=== PATIENT | female | born 1970 | race Caucasian/White ===

== ENCOUNTER → 2019-03-12 | Outpatient (CLI) | payer OTHER ==
[2019-03-12 13:51] LABS: HCT 43.1 % (34.0-46.0); HGB 14.1 gm/dL (11.4-16.0); MCH 31.6 pg (25.0-35.0); MCHC 32.7 g/dL (31.0-37.0); MCV 96.6 fL (80.0-100.0); Mean Platelet Volume 6.7; Platelet Count 308 k/uL (150-450); RBC 4.47 m/uL (3.80-5.40); RDW 12.1 % (11.5-15.5); WBC 8.6 k/uL (3.8-10.6)
--- NOTE | 2019-03-12 13:54 | XR ---
EXAMINATION TYPE: XR chest 2V DATE OF EXAM: 03/12/2019 COMPARISON: NONE HISTORY: Chest pain TECHNIQUE: Frontal and lateral views of the chest are obtained. FINDINGS: There is no focal air space opacity, pleural effusion, or pneumothorax seen. Pulmonary hyp erinflation is seen indicative of underlying COPD with prominence of the main pulmonary arteries. The cardiac silhouette size is within normal limits. The osseous structures are intact. Mild multileve l degenerative change of the spine. IMPRESSION: No acute cardiopulmonary process. COPD with findings suggesting pulmonary arterial hyper tension.
[2019-03-12 14:19] LABS: ALT 18 U/L (4-34); AST 30 U/L (14-36); African American GFR (CKD) >90 (>60 ml/min/1.73 sqM); Albumin 4.7 g/dL (3.5-5.0); Alkaline Phosphatase 77 U/L (38-126); Anion Gap 11 mmol/L; Blood Urea Nitrogen 21 mg/dL (7-17); Carbon Dioxide 26 mmol/L (22-30); Chloride 103 mmol/L (98-107); Creatine Kinase 129 U/L (30-135); Glucose 96 mg/dL (74-99); LDH 597 U/L (313-618); Non-African American GFR(CKD) >90 (>60 ml/min/1.73 sqM); Potassium 5.3 mmol/L (3.5-5.1); Sodium 140 mmol/L (137-145); Total Bilirubin 0.4 mg/dL (0.2-1.3); Total Protein 7.5 g/dL (6.3-8.2)
[2019-03-12 14:35] LABS: T4, Free (Free Thyroxine) 0.84 ng/dL (0.78-2.19)
[2019-03-12 20:33] LABS: Folate, Serum >24.0 ng/mL
[2019-03-12 23:37] LABS: Hemoglobin A1C 5.4 % (4.0-6.0)
== END | disposition home or self-care (01) ==
LOC: RADXRWHC 12:55
PROVIDERS: ATTEND Family Medicine
DX: J44.9 Chronic obstructive pulmonary disease, unspecified (principal); G47.62 Sleep related leg cramps; R07.9 Chest pain, unspecified; R00.2 Palpitations; R06.02 Shortness of breath; R53.83 Other fatigue; R42 Dizziness and giddiness
CPT/HCPCS: 71046; 80053; 82306; 82550; 82607; 82746; 83036; 83615; 83735; 84439; 84443; 84484; 85027; 85379

== ENCOUNTER → 2019-03-16 | Outpatient (CLI) | payer OTHER | LOC: RADECHMAIN 12:32 | PROVIDERS: ATTEND Family Medicine | DX: R00.2 Palpitations (principal) | CPT/HCPCS: 93225; 93226 ==

== ENCOUNTER → 2019-08-08 | Outpatient (CLI) | payer OTHER ==
--- NOTE | 2019-08-08 10:40 | ECHOF ---
Referral Reason:R01.1 Cardiac murmur, unspecified MEASUREMENTS -------- HEIGHT: 167.6 cm WEIGHT: 66.7 kg BP: 113/72 RVIDd: 2.7 cm (< 3.3) IVSd: 1.0 cm (0.6 - 1.1) LVIDd: 4.1 cm (3.9 - 5.3) LVPWd: 0.8 cm (0.6 - 1.1) IVSs: 1.4 cm LVIDs: 2.9 cm LVPWs: 1.3 cm LA Diam: 3.2 cm (2.7 - 3.8) LAESV Index (A-L): 21.53 ml/m Ao Diam: 2.3 cm (2.0 - 3.7) AV Cusp: 1.8 cm (1.5 - 2.6) MV EXCURSION: 18.894 mm (> 18.000) MV EF SLOPE: 67 mm/s (70 - 150) EPSS: 0.5 cm MV E Nabeel: 0.93 m/s MV DecT: 305 ms MV A Nabeel: 0.78 m/s MV E/A Ratio: 1.19 AV maxP.95 mmHg AV meanP.90 mmHg RAP: 5.00 mmHg RVSP: 28.77 mmHg FINDINGS -------- Sinus rhythm. This was a technically adequate study. The left ventricular size is normal. Left ventricular wall thickness is normal. Overall left vent ricular systolic function is normal with, an EF between 60 - 65 %. The right ventricle is normal in size. Normal LA size by volume 22+/-6 ml/m2. The right atrium is normal in size. Interatrial and interventricular septum intact. The aortic valve is bicuspid. There is mild aortic valve sclerosis. Mild to moderate aortic steno sis with peak/mean pressure gradient of 36.95mmHg / 21.90mmHg , the aortic valve area by continuity e quation is 1.4cm. Peak/mean gradient across the Aortic Valve is 36.95mmHg / 21.90mmHg. Possible Bi cuspid valve, Somewhat off axis views, Valve opens very well, , leaflets are calcified The mitral valve leaflets are mildly thickened. There is trace mitral regurgitation. Mild tricuspid regurgitation present. Right ventricular systolic pressure is normal at < 35 mmHg. Trace/mild (physiologic) pulmonic regurgitation. The aortic root size is normal. Normal inferior vena cava with normal inspiratory collapse consistent with estimated right atrial pre ssure of 5 mmHg. There is no pericardial effusion. Off axis aortic valve views, calcified tips, possible Bicuspid CONCLUSIONS -------- 1. Sinus rhythm. 2. This was a technically adequate study. 3. The left ventricular size is normal. 4. Left ventricular wall thickness is normal. 5. Overall left ventricular systolic function is normal with, an EF between 60 - 65 %. 6. The right ventricle is normal in size. 7. Normal LA size by volume 22+/-6 ml/m2. 8. The right atrium is normal in size. 9. Interatrial and interventricular septum intact. 10. The aortic valve is bicuspid. 11. There is mild aortic valve sclerosis. 12. Mild to moderate aortic stenosis with peak/mean pressure gradient of 36.95mmHg / 21.90mmHg , the aortic valve area by continuity equation is 1.4cm. 13. Peak/mean gradient across the Aortic Valve is 36.95mmHg / 21.90mmHg. 14. The mitral valve leaflets are mildly thickened. 15. There is trace mitral regurgitation. 16. Mild tricuspid regurgitation present. 17. Right ventricular systolic pressure is normal at < 35 mmHg. 18. Trace/mild (physiologic) pulmonic regurgitation. 19. The aortic root size is normal. 20. Normal inferior vena cava with normal inspiratory collapse consistent with estimated right atrial pressure of 5 mmHg. 21. There is no pericardial effusion. CRUDE TESTER: Jennifer Larose RDCS
== END | disposition home or self-care (01) ==
LOC: RADECHMAIN 08:45
PROVIDERS: ATTEND Family Medicine
DX: Q23.1 Congenital insufficiency of aortic valve (principal); R01.1 Cardiac murmur, unspecified
CPT/HCPCS: 93306

== ENCOUNTER → 2020-11-05 | Outpatient (CLI) | payer OTHER ==
--- NOTE | 2020-11-05 10:18 | US ---
EXAMINATION TYPE: US abdomen complete DATE OF EXAM: 11/05/2020 COMPARISON: NONE CLINICAL HISTORY: R10.84 abdominal pain R94.8 abnormal pancreas func. Bowel irregularities, elevated liver enzymes EXAM MEASUREMENTS: Liver Length: 12.8 cm Gallbladder Wall: 0.2 cm CBD: 0.5 cm Spleen: 8.5 cm Right Kidney: 9.9 x 4.2 x 4.3 cm Left Kidney: 9.4 x 5.6 x 4.4 cm Pancreas: visualized portions wnl, limited by overlying midline bowel gas Liver: 1.0cm cyst left lobe, otherwise appears wnl Gallbladder: wnl Evidence for sonographic Ch's sign: no CBD: wnl Spleen: visualized portions wnl, limited by overlying bowel gas Right Kidney: wnl Left Kidney: visualized portions wnl, superior pole limited by overlying bowel gas Upper IVC: wnl Abd Aorta: wnl The liver is homogenous. The intrahepatic portion of the IVC and proximal abdominal aorta are within normal limits. There is no evidence of cholelithiasis. Common bile duct is unremarkable. The visu alized portions of the pancreas are homogenous. The spleen is unremarkable. Kidneys are symmetric a nd free of hydronephrosis. No renal lesions are seen. IMPRESSION: Simple hepatic cyst. Otherwise unremarkable study.
== END | disposition home or self-care (01) ==
LOC: RADUSWWP 09:36
PROVIDERS: ATTEND Family Medicine
DX: K76.89 Other specified diseases of liver (principal); R10.84 Generalized abdominal pain; R94.5 Abnormal results of liver function studies; R94.8 Abnormal results of function studies of other organs and systems
CPT/HCPCS: 76700

== ENCOUNTER 2021-01-28 15:47 | Emergency (ER) | payer OTHER ==
[2021-01-28] MEDS ORDERED: ONDANSETRON 4 MG/2 ML VIAL IVP STA (19:25)
[2021-01-28] MEDS ORDERED: SODIUM CHLORIDE 0.9% 1,000 ML IV STA (19:25)
[2021-01-28] MEDS ORDERED: DEXAMETHASONE SOD PHOSPHATE 10 MG/ML 1 ML VIAL IVP STA (19:25)
[2021-01-28] MEDS ORDERED: ACETAMINOPHEN TAB 325 MG TAB PO STA (19:25)
--- NOTE | 2021-01-28 20:10 | XR ---
EXAMINATION TYPE: XR chest 2V DATE OF EXAM: 01/28/2021 COMPARISON: 03/12/2019 HISTORY: Cough. TECHNIQUE: 2 views FINDINGS: There is a 5 cm patch of infiltrate in the posterior left lower lobe. This is adjacent to t he chest wall. Heart and mediastinum are normal. There are no hilar masses. There is no pleural effus ion. Bony thorax is intact. IMPRESSION: Left lower lobe pneumonia is new compared to old exam.
[2021-01-28] MEDS ORDERED: SODIUM CHLORIDE 0.9% 50 ML IVPB ONE (20:15)
[2021-01-28] MEDS ORDERED: BAMLANIVIMAB (EUA) 700 MG, ETESEVIMAB (EUA) 1,400 MG in SODIUM CHLORIDE 0.9% 50 ML IVPB ONE (20:15)
--- NOTE | 2021-01-28 20:35 | ED ---
URI HPI - General Chief Complaint: Upper Respiratory Infection Stated Complaint: Covid+ Time Seen by Provider: 01/28/21 19:00 Source: patient, RN notes reviewed Mode of arrival: ambulatory Limitations: no limitations - History of Present Illness Initial Comments: Patient is a 50-year-old female that presents to the emergency Department complaining of Covid symptoms for approximately a week she did test positive on Tuesday this week. Patient notes that she feels feverish. She was otherwise well-appearing. Patient was in moderate amounts of emotional distress stating that she just doesn't feel well. Patient denied any other issues or complaints. She denied chest pain shortness of breath headache vomiting diarrhea constipation fever fatigue chills. Patient does have a congenital heart disorder. - Related Data Previous Rx's Medication Instructions Recorded Azithromycin [Zithromax Z-pack (6 0 mg PO DIRECTED #6 tab 01/28/21 tabs)] Allergies Allergy/AdvReac Type Severity Reaction Status Date / Time No Known Allergies Allergy Verified 01/28/21 17:24 Review of Systems ROS Statement: Those systems with pertinent positive or pertinent negative responses have been documented in the HPI. ROS Other: All systems not noted in ROS Statement are negative. Past Medical History Additional Past Medical History / Comment(s): Heart murmur History of Any Multi-Drug Resistant Organisms: None Reported Past Surgical History: No Surgical Hx Reported Past Psychological History: No Psychological Hx Reported Smoking Status: Never smoker Past Alcohol Use History: Occasional Past Drug Use History: None Reported General Exam Limitations: no limitations General appearance: alert, in no apparent distress Head exam: Present: atraumatic, normocephalic, normal inspection Eye exam: Present: normal appearance, PERRL, EOMI. Absent: scleral icterus, conjunctival injection, periorbital swelling ENT exam: Present: normal exam, mucous membranes moist Neck exam: Present: normal inspection Respiratory exam: Present: normal lung sounds bilaterally. Absent: respiratory distress, wheezes, rales, rhonchi, stridor Cardiovascular Exam: Present: regular rate, normal rhythm, normal heart sounds. Absent: systolic murmur, diastolic murmur, rubs, gallop, clicks Extremities exam: Present: normal inspection, full ROM, normal capillary refill. Absent: tenderness, pedal edema, joint swelling, calf tenderness Neurological exam: Present: alert, oriented X3 Psychiatric exam: Present: normal affect, normal mood Skin exam: Present: warm, dry, intact, normal color. Absent: rash Course Vital Signs 01/28/21 17:21 Temperature 99.4 F Pulse Rate 96 Respiratory 20 Rate Blood Pressure 96/54 O2 Sat by Pulse 96 Oximetry Medical Decision Making - Medical Decision Making 50-year-old female Covid-positive. 650 mg of Tylenol, 10 mg of Decadron, 4 mg of Zofran, 1 L normal saline ordered. 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 Patient is agreeable with discharge home with conservative management after. Case discussed with Dr. Miguel, patient discharge home. - Radiology Data Radiology results: report reviewed, image reviewed Chest x-ray: Left lower lobe pneumonia is new compared to old exam. Disposition Clinical Impression: COVID Disposition: HOME SELF-CARE Condition: Stable Instructions (If sedation given, give patient instructions): Coronavirus Disease 2019 (COVID-19) Additional Instructions: Please return to the Emergency Department if symptoms worsen or any other concerns. Follow-up primary care in 1-2 days. Antibiotics sent to pharmacy for possible early developing pneumonia. Is patient prescribed a controlled substance at d/c from ED?: No Referrals: Suzanne Gould MD [Primary Care Provider] - 1-2 days Time of Disposition: 20:34
[2021-01-28] MEDS ORDERED: IBUPROFEN 800 MG TAB PO STA (21:49)
[2021-01-28 22:11] VITALS: BP 98/60; PULSE 87; RESP 18; TEMP 98.9
== END 2021-01-28 22:11 | disposition home or self-care (01) ==
LOC: EC 15:47
DX: U07.1 COVID-19 (principal)
CPT/HCPCS: 99283; 96365; 96375; 71046; J1100; J2405; J3490

== ENCOUNTER → 2021-03-09 | Outpatient (CLI) | payer OTHER ==
--- NOTE | 2021-03-09 14:24 | US ---
EXAMINATION TYPE: US carotid duplex BILAT DATE OF EXAM: 03/09/2021 COMPARISON: Carotid ultrasound November 29, 2019 CLINICAL HISTORY: R09.89 CAROTID BRUIT. Patient states having a heart murmur. No HTN. EXAM MEASUREMENTS: RIGHT: Peak Systolic Velocity (PSV) cm/sec ----- Right CCA: 75.4 ----- Right ICA: 85.3 ----- Right ECA: 87.9 ICA/CCA ratio: 1.1 RIGHT: End Diastole cm/sec ----- Right CCA: 24.7 ----- Right ICA: 38.5 ----- Right ECA: 19.0 LEFT: Peak Systolic Velocity (PSV) cm/sec ----- Left CCA: 77.1 ----- Left ICA: 89.4 ----- Left ECA: 89.9 ICA/CCA ratio: 1.2 LEFT: End Diastole cm/sec ----- Left CCA: 21.6 ----- Left ICA: 36.5 ----- Left ECA: 21.6 VERTEBRALS (direction of flow): Right Vertebral: Antegrade Left Vertebral: Antegrade Rhythm: Normal No wall thickening, plaque, elevated velocities or significant stenosis. Craven scale images show no significant focal plaque. IMPRESSION: No hemodynamically significant stenosis in either internal carotid artery. No signific ant change from prior. Criteria for Assigning % of Stenosis / Diameter reduction (Estimation based on the indirect measurements of the internal carotid artery velocities (ICA PSV). 1. Normal (no stenosis)=ICA PSV < 125 cm/s: ratio < 2.0: ICA EDV<40 cm/s. 2. Less than 50% stenosis=ICA PSV < 125 cm/s: ratio < 2.0: ICA EDV<40 cm/s. 3. 50 to 69% stenosis=ICA PSV of 125 to 230 cm/s: ration 2.0 ? 4.0: ICA EDV 40-100 cm/s. 4. Greater than 70% stenosis to near occlusion= ICA PSV > 230 cm/s: ratio > 4.0: ICA EDV > 100 cm/s. 5. Near occlusion= ICA PSV velocities may be low or undetectable: variable ratio and ICA EDV. 6. Total occlusion=unable to detect flow.
--- NOTE | 2021-03-09 14:26 | US ---
EXAMINATION TYPE: US pelvic complete DATE OF EXAM: 03/09/2021 COMPARISON: NONE CLINICAL HISTORY: R10.2 PELVIC PAIN. Bladder pressure. TECHNIQUE: Transabdominal (TA). Transabdominal sonographic images of the pelvis were acquired. Date of LMP: unknown, EXAM MEASUREMENTS: Uterus: 7.8 x 3.6 x 3.2 cm Endometrial Stripe: 0.4 cm Right Ovary: 2.6 x 1.8 x 1.4 cm Left Ovary: 2.4 x 2.1 x 1.3 cm 1. Uterus: Anteverted wnl 2. Endometrium: wnl 3. Right Ovary: wnl 4. Left Ovary: wnl 5. Bilateral Adnexa: wnl 6. Posterior cul-de-sac: no free fluid Heterogeneous anteverted uterus. Endometrial stripe measures within normal limits. No free fluid pelv ic cul-de-sac. Both ovaries are seen. They are symmetric and normal in size. No suspicious extraovarian adnexal mass es. IMPRESSION: No acute findings are evident.
--- NOTE | 2021-03-12 11:01 | MM ---
Reason for exam: screening (asymptomatic). Last mammogram was performed 3 years and 3 months ago. Physical Findings: A clinical breast exam by your physician is recommended on an annual basis and results should be correlated with mammographic findings. MG Screening Mammo w CAD Bilateral CC and MLO view(s) were taken. Prior study comparison: December 12, 2017, mammogram, performed at [facility]. July 22, 2014, mammogram, performed at [facility]. The breast tissue is extremely dense which could obscure a lesion on mammography. There is no discrete abnormality. ASSESSMENT: Negative, BI-RAD 1 RECOMMENDATION: Routine screening mammogram of both breasts in 1 year. Some consider bilateral ultrasound surveillance in patient with extremely dense fibroglandular tissue.
== END | disposition home or self-care (01) ==
LOC: RADUSWWP 13:00
PROVIDERS: ATTEND Family Medicine
DX: Z12.31 Encounter for screening mammogram for malignant neoplasm of breast (principal); R09.89 Other specified symptoms and signs involving the circulatory and respiratory systems; R10.2 Pelvic and perineal pain
CPT/HCPCS: 76856; 77067; 93880